=== PATIENT | female | born 1995 | race Caucasian/White ===

== ENCOUNTER 2019-06-18 20:10 | Emergency (ER) | payer OTHER ==
--- NOTE | 2019-06-18 20:19 | PDOC ---
Rapid Medical Evaluation Chief Complaint: Pain Time Seen by Provider: 06/18/19 20:14 Medical Evaluation: 06/18/19 20:15 c/o abdominal pain RLQ since yesterday denies nausea, vomiting, diarrhea. LMP 06/01/2019 A: abdominal pain P: Labs US ua urine Discharge Disposition - Diagnosis RLQ abdominal pain - Referrals - Patient Instructions - Post Discharge Activity
[2019-06-18 20:26] VITALS: BMI 27.8
[2019-06-18 20:58] LABS: EOS % 2.1 % (0-4.5); LYMPH % 32.7 % (8-40); MCH 26.5 pg (25.7-33.7); MCHC 33.2 g/dl (32.0-36.0); MEAN CELL VOLUME 79.9 fl (80-96); MEAN PLT VOLUME 9.5 fl (7.5-11.1); NEUT % 54.2 % (42.8-82.8); PLATELET COUNT 189 K/MM3 (134-434); RBC 5.26 M/mm3 (3.60-5.2); RDW 13.7 % (11.6-15.6); WHITE BLOOD COUNT 7.6 K/mm3 (4.0-10.0)
[2019-06-18 21:18] LABS: ALBUMIN 3.7 g/dl (3.4-5.0); ALK PHOS 87 U/L (45-117); ANION GAP 6 MMOL/L (8-16); BILIRUBIN,TOTAL 0.2 mg/dL (0.2-1); BLOOD UREA NITROGEN 12.2 mg/dL (7-18); CALCIUM 9.1 mg/dL (8.5-10.1); CHLORIDE 104 mmol/L (98-107); CO2 29 mmol/L (21-32); CREATININE 0.8 mg/dL (0.55-1.3); GLUCOSE,RANDOM 98 mg/dL (74-106); LIPASE 133 U/L (73-393); POTASSIUM 4.3 mmol/L (3.5-5.1); SGOT/AST 24 U/L (15-37); SGPT/ALT 31 U/L (13-61); SODIUM 138 mmol/L (136-145); TOT PROT 7.3 g/dl (6.4-8.2)
[2019-06-18] MEDS ORDERED: morphine CARPU-JECT 4 MG/1 ML DISP.SYRIN IVPUSH ONE (21:21)
[2019-06-18 21:37] LABS: URINE BILIRUBIN NEGATIVE (NEGATIVE); URINE COLOR YELLOW; URINE GLUCOSE (UA) NEGATIVE (NEGATIVE); URINE KETONE NEGATIVE (NEGATIVE); URINE LEUK ESTERASE NEGATIVE (NEGATIVE); URINE NITRITE NEGATIVE (NEGATIVE); URINE PROTEIN NEGATIVE (NEGATIVE); URINE UROBILINOGEN 0.2 mg/dL (0.2-1.0)
[2019-06-18] MEDS ORDERED: morphine SULFATE 4 MG/ML VIAL ONE (21:42)
[2019-06-18 22:04] LABS: URINE APPEARANCE CLOUDY
--- NOTE | 2019-06-18 23:07 | PDOC ---
History of Present Illness - General Chief Complaint: Pain Stated Complaint: ABD PAIN Time Seen by Provider: 06/18/19 20:14 History Source: Patient Exam Limitations: Language Barrier (translator/interpreter ID#[id number]) Past History - Past Medical History Allergies/Adverse Reactions: Allergies Allergy/AdvReac Type Severity Reaction Status Date / Time No Known Allergies Allergy Verified 06/18/19 20:15 Home Medications: Ambulatory Orders NK [No Known Home Medication] 06/18/19 COPD: No - Immunization History Immunization Up to Date: Yes - Suicide/Smoking/Psychosocial Hx Smoking History: Never smoked Hx Alcohol Use: No Drug/Substance Use Hx: No *Physical Exam - Vital Signs Last Vital Signs Temp Pulse Resp BP Pulse Ox 98.2 F 84 16 127/73 100 06/18/19 20:15 06/18/19 20:15 06/18/19 20:15 06/18/19 20:15 06/18/19 20:15 - Physical Exam General Appearance: No: Apparent Distress Respiratory/Chest: positive: Lungs Clear, Normal Breath Sounds. negative: Respiratory Distress Cardiovascular: positive: Regular Rhythm, Regular Rate, S1, S2. negative: Murmur Female Pelvic Exam: positive: adnexal tenderness (R adnexal tenderness (R adnexal tenderness >> RLQ pain)). negative: CMT, discharge Gastrointestinal/Abdominal: positive: Tender (RLQ), Soft. negative: Distended, Guarding, Rebound, Hernia, Mass Musculoskeletal: negative: CVA Tenderness Neurologic: positive: Alert, Normal Mood/Affect ED Treatment Course - LABORATORY CBC & Chemistry Diagram: 06/18/19 20:36 06/18/19 20:36 - ADDITIONAL ORDERS Additional order review: Laboratory Results 06/18/19 06/18/19 06/18/19 20:36 20:36 20:31 Sodium 138 Potassium 4.3 Chloride 104 Carbon Dioxide 29 Anion Gap 6 L BUN 12.2 Creatinine 0.8 Est GFR (CKD-EPI)AfAm 121.29 Est GFR (CKD-EPI)NonAf 104.65 Random Glucose 98 Calcium 9.1 Total Bilirubin 0.2 AST 24 ALT 31 Alkaline Phosphatase 87 Total Protein 7.3 Albumin 3.7 Lipase 133 Beta HCG, Quant < 1.0 Urine Color Yellow Urine Appearance Cloudy Urine pH 6.0 Ur Specific [place] 1.020 Urine Protein Negative Urine Glucose (UA) Negative Urine Ketones Negative Urine Blood Negative Urine Nitrite Negative Urine Bilirubin Negative Urine Urobilinogen 0.2 Ur Leukocyte Esterase Negative Urine HCG, Qual Negative 06/18/19 20:36 RBC 5.26 H MCV 79.9 L MCHC 33.2 RDW 13.7 MPV 9.5 Neutrophils % 54.2 Lymphocytes % 32.7 Monocytes % 10.0 Eosinophils % 2.1 Basophils % 1.0 - Medications Given in the ED: ED Medications Discontinued Medications Generic Name Dose Route Start Last Admin Trade Name Frelloyd PRN Reason Stop Dose Admin Morphine Sulfate 4 mg 06/18/19 21:21 06/18/19 21:50 Morphine Injection - IVPUSH 06/18/19 21:22 4 mg ONCE ONE Administration Medical Decision Making - Medical Decision Making 24 y/o F with no sig pmh presents with RLQ pain from yesterday. Denies fever, sob, cp, vomiting, diarrhea, urinary complaints, unusual vaginal discharge. Is sexually active with 1 partner. Denies prior abdominal/pelvic surgeries. Labs unremarkable Pelvic US shows 5.7 cm R ovarian cyst, likely cause of patient's pain No evidence of torsion noted Patient feeling better on reassessment Will refer to [facility] for further eval 06/18/19 23:06 *DC/Admit/Observation/Transfer Diagnosis at time of Disposition: Right ovarian cyst - Discharge Dispostion Disposition: HOME Condition at time of disposition: Improved Decision to Admit order: No - Referrals Referrals: Nikki Mendoza DO [Staff Physician] - 2 Days - Patient Instructions Printed Discharge Instructions: DI for Ovarian Cyst Additional Instructions: Thank you for choosing [facility]. It was a pleasure taking care of you. You were noted with large right ovarian cyst Please realize that given the size of this cyst, it can twist and cause severe pain Please follow-up with cable armorer operator in 2 days Return to the Emergency Department if your symptoms worsen or persist, you have fever, severe abdominal pain, vomiting or other concerning symptoms. Angel por elegir el [facility]. Fue un placer cuidar de ti. Usted fue observado con un gran quiste ovrico derecho Tenga en cuenta que, dado el tamao de ozzie quiste, puede torcerse y causar dolor vineet Claudia un seguimiento con el gineclogo en 2 gardner. Regrese al departamento de emergencias si jeronimo sntomas empeoran o persisten, tiene fiebre, dolor abdominal intenso, vmitos u otros sntomas preocupantes. - Post Discharge Activity
[2019-06-18 23:31] VITALS: BP 122/70; PULSE 80; TEMP 98
== END 2019-06-18 23:30 | disposition home or self-care (01) ==
LOC: JER 20:10
PROC: 3E033NZ Introduction of Analgesics, Hypnotics, Sedatives into Peripheral Vein, Percutaneous Approach (ICD-10-PCS; principal; 2019-06-18)
DX: N83.201 Unspecified ovarian cyst, right side (principal)
CPT/HCPCS: 36415; 76830-TC; 76856-TC; 80053; 81003; 83690; 84702; 84703; 85025; 99282-25